=== PATIENT | female | born 1965 | race Caucasian/White ===

== ENCOUNTER → 2017-12-05 | Outpatient (CLI) | payer OTHER, MEDICAID ==
--- NOTE | 2017-12-08 13:35 | CPEEG ---
DATE OF STUDY: 12/05/2017 INTERPRETATION: Essentially normal EEG during wakefulness and sleep. There were no potentially epil eptogenic abnormalities present in the recording. REPORT: This EEG contains 10 Hz alpha activity to the posterior head regions. There was no abnormal activation at rest, during photic stimulation, or hyperventilation. The patient intermittently josafat me drowsy and fell into light sleep during the study. During drowsiness, there was bitemporal theta activity. This was a normal drowsy variant. There was no abnormal activation during drowsiness, sle ep, or during times of arousal. /[id number]/MODL
== END ==
LOC: FCPNEURO 11:50
PROVIDERS: ATTEND Psychiatry & Neurology Neurology
DX: R40.4 Transient alteration of awareness (principal)